=== PATIENT | female | born 1975 | race Caucasian/White ===

== ENCOUNTER 2019-08-29 10:02 | Emergency (ER) | payer MEDICARE, MEDICAID, SELFPAY ==
[2019-08-29] VITALS (19 sets, daily range): BP systolic 126–154; BP diastolic 63–89; PULSE 63–112; RESP 9–25; TEMP 36.7–36.8; O2SAT 98–100
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
[2019-08-29] MEDS: Ondansetron O.D.T. 4 MG TABEF PO (10:30)
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
[2019-08-29 12:13] LABS: Abs Immature Grans 0.03 k/cumm (0.0-0.09); Absolute Basophil Count 0.03 k/cumm (0.0-0.2); Absolute Eosinophil Count 0.02 k/cumm (0.0-0.7); Absolute Lymphocyte Count 0.91 k/cumm (1.2-3.4); Absolute Monocyte Count 0.76 k/cumm (0.11-0.7); Absolute Neutrophil Count 15.07 k/cumm (1.2-6.7); Basophils % 0.2; Eosinophils % 0.1; HCT 42.7 % (36.0-46.0); HGB 14.3 g/dL (12.0-15.5); Immature Grans % 0.2; Lymphocytes % 5.4; Mean Corp. HGB Concentration 33.5 g/dL (32.0-36.0); Mean Corpuscular Hemoglobin 30.6 pg (27.0-33.0); Mean Corpuscular Volume 91.2 fL (80-95); Mean Platelet Volume 10.3 fL (8.0-11.0); Monocytes % 4.5; Neutrophils % 89.6; Platelet Count 223 x1000/uL (130-400); RBC 4.68 m/cumm (4.00-5.20); RBC Distribution Width 13.4 % (11.7-14.6); White Blood Cell Count 16.82 k/cumm (4.4-10.8)
[2019-08-29 12:24] LABS: ALT 54 U/L (14-59); AST 55 U/L (15-37); Albumin 3.9 g/dL (3.4-5.0); Alkaline Phosphatase 116 U/L (46-116); Anion Gap 7.8 mmol/L (3-11); BUN 13 mg/dL (7-18); Bilirubin, Total 0.4 mg/dL (0.2-1.0); CO2 27.2 mmol/L (21.0-32.0); CREATININE 0.94 mg/dL (0.55-1.02); Chloride 106 mmol/L (98-107); Glucose 116 mg/dL (70-100); Sodium 141 mmol/L (136-145); Total Protein 7.5 g/dL (6.4-8.2)
[2019-08-29 12:26] LABS: PTT Activated 24.3 sec (21.0-31.4); Prothrombin Time 10.4 sec (9.3-11.0)
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
== END 2019-08-29 12:50 | disposition short-term general hospital (02) ==
PROVIDERS: Emergency Provider Physician Assistant
DX: I62.9 Nontraumatic intracranial hemorrhage, unspecified (principal); S12.190A Other displaced fracture of second cervical vertebra, initial encounter for closed fracture; S50.12XA Contusion of left forearm, initial encounter; V43.52XA Car driver injured in collision with other type car in traffic accident, initial encounter
CPT/HCPCS: 36415; 80053; 86850; 86900; 86901; 99284; 70450; 71045; 72125; 73090; 73564; 85025; 85610; 85730